=== PATIENT | female | born 1975 | race Caucasian/White ===

== ENCOUNTER 2018-01-17 15:31 | Emergency (ER) | payer OTHER ==
[2018-01-17 15:58] VITALS: BP 105/75; PULSE 81; TEMP 98.4; BMI 20.9
[2018-01-17] MEDS ORDERED: MECLIZINE HCL 25 MG TABLET (FP) PO ONE (15:58)
[2018-01-17] MEDS ORDERED: MECLIZINE HCL 25 MG TABLET (FP) ONE (16:07)
[2018-01-17 16:19] LABS: BASO % 1.1 % (0-2.0); EOS % 1.8 % (0-4.5); HEMATOCRIT 39.6 % (32.4-45.2); HEMOGLOBIN 13.8 GM/dl (10.7-15.3); LYMPH % 35.1 % (8-40); MCH 29.7 pg (25.7-33.7); MCHC 34.9 g/dl (32.0-36.0); MEAN CELL VOLUME 85.2 fl (80-96); MEAN PLT VOLUME 9.5 fl (7.5-11.1); MONO % 7.7 % (3.8-10.2); NEUT % 54.3 % (42.8-82.8); PLATELET COUNT 252 K/MM3 (134-434); RBC 4.65 M/mm3 (3.60-5.2); RDW 11.5 % (11.6-15.6); WHITE BLOOD COUNT 5.7 K/mm3 (4.0-10.8)
--- NOTE | 2018-01-17 16:26 | PDOC ---
History of Present Illness - General Chief Complaint: Lightheaded Stated Complaint: dizzy Time Seen by Provider: 01/17/18 15:35 - History of Present Illness Initial Comments: 01/17/18 16:20 "Patient is a 42 F, with no significant PMHx, who presents today with dizziness. 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 She states that she had just finished her lunch, and while she was seated she felt her head drift to the left side. She states that she felt a floating sensation like her head was in the clouds, and the sensation was worse with movement. Pt states that she sometimes gets lightheaded when her blood pressure is low, but she checked it and it was normal. Pt states that her symptoms have since subsided significantly, although looking to the left sets it off again slightly. Patient states that she has allergies and has had some nasal congestion recently. Denies ear ache, denies F/C. Denies CP/SOB/palpitations. Denies weakness/numbness/tingling in any extremity. Denies slurred speech or facial droop. Past History - Past Medical History Allergies/Adverse Reactions: Allergies Allergy/AdvReac Type Severity Reaction Status Date / Time No Known Allergies Allergy Verified 01/17/18 15:32 Home Medications: Ambulatory Orders Meclizine HCl [Antivert -] 25 mg PO DAILY PRN #7 tablet 01/17/18 COPD: No Other medical history: hypotensive,dizziness - Suicide/Smoking/Psychosocial Hx Smoking History: Never smoked Hx Alcohol Use: No Drug/Substance Use Hx: No Substance Use Type: None Review of Systems - Review of Systems Comments:: 01/17/18 16:23 GENERAL/CONSTITUTIONAL: No fever or chills. No weakness. HEAD, EYES, EARS, NOSE AND THROAT: No change in vision. No ear pain or discharge. +nasal congestion. No sore throat. CARDIOVASCULAR: No chest pain or shortness of breath. RESPIRATORY: No cough, wheezing, or hemoptysis. GASTROINTESTINAL: No nausea, vomiting, diarrhea or constipation. GENITOURINARY: No dysuria, frequency, or change in urination. MUSCULOSKELETAL: No joint or muscle swelling or pain. No neck or back pain. SKIN: No rash NEUROLOGIC: No headache, +vertigo, no loss of consciousness, or change in strength/sensation. ENDOCRINE: No increased thirst. No abnormal weight change. HEMATOLOGIC/LYMPHATIC: No anemia, easy bleeding, or history of blood clots. ALLERGIC/IMMUNOLOGIC: No hives or skin allergy. *Physical Exam - Vital Signs Last Vital Signs Temp Pulse Resp BP Pulse Ox 98.4 F 81 18 105/75 100 01/17/18 15:31 01/17/18 15:41 01/17/18 15:31 01/17/18 15:41 01/17/18 15:31 - Physical Exam Comments: 01/17/18 16:23 """GENERAL: Awake, alert, and fully oriented, in no acute distress. HEAD: No signs of trauma EYES: PERRLA, EOMI, sclera anicteric, conjunctiva clear ENT: Auricles normal inspection, hearing grossly normal, nares patent, oropharynx clear without exudates. Moist mucosa NECK: Nontender, no stepoffs, Normal ROM, supple, no lymphadenopathy, JVD, or masses LUNGS: Breath sounds equal, clear to auscultation bilaterally. No wheezes, and no crackles HEART: Regular rate and rhythm, normal S1 and S2, no murmurs, rubs or gallops ABDOMEN: Soft, nontender, normoactive bowel sounds. No guarding, no rebound. No masses EXTREMITIES: Normal range of motion, no edema. No clubbing or cyanosis. No cords, erythema, or tenderness NEUROLOGICAL: + unidirectional left beating horizontal nystagmus, no rotatory or vertical nystagmus, Cranial nerves II through XII intact. 5/5 strength and sensation in all extremities, Normal speech, normal gait. [id number] normal, tandem gait normal SKIN: Warm, Dry, normal turgor, no rashes or lesions noted. """ ED Treatment Course - LABORATORY CBC & Chemistry Diagram: 01/17/18 16:00 01/17/18 16:00 - Medications Given in the ED: ED Medications Discontinued Medications Generic Name Dose Route Start Last Admin Trade Name Freq PRN Reason Stop Dose Admin Meclizine HCl 25 mg 01/17/18 15:58 01/17/18 16:09 Antivert - PO 01/17/18 15:59 25 mg ONCE ONE Administration Medical Decision Making - Medical Decision Making 01/17/18 16:24 42 F with vertigo. Likely peripheral vertigo, possibly 2/2 viral syndrome or allergic rhinitis. Pt with horizontal left beating nystagmus on exam, with no other focal neuro deficits. Pt is healthy with no risk factors for CVA. - Labs - Meclizine 01/17/18 16:49 Labs wnl Pt reassessed - now feels much better. Ambulatory with steady gait. Repeat exam with no nystagmus. Pt is well appearing, with normal vitals. Clinically stable for DC at this time. I discussed the physical exam findings, ancillary test results and final diagnoses with the patient. I answered all of the patient's questions. The patient was satisfied with the care received and felt comfortable with the discharge plan and treatment plan. The patient agrees to follow up with the primary care physician within 24-72 hours. *DC/Admit/Observation/Transfer Diagnosis at time of Disposition: Vertigo - Discharge Dispostion Condition at time of disposition: Stable - Prescriptions Prescriptions: Meclizine HCl [Antivert -] 25 mg PO DAILY PRN #7 tablet PRN Reason: Vertigo - Referrals Referrals: Alexx Subramanian MD [Staff Physician] - - Patient Instructions Printed Discharge Instructions: Benign Paroxysmal Positional Vertigo Additional Instructions: You likely have vertigo. Take the meclizine as needed when you have episodes of dizziness. Call the number provided to make an appointment with an ENT specialist for further evaluation of your vertigo. If you experience severe or persistent dizziness, headache, vomiting, or any other concerning symptoms, return to the ER immediately. - Post Discharge Activity - Attestations Physician Attestion: 01/17/18 16:44 I, Dr. Dejon Jang MD, attest that this document has been prepared under my direction and personally reviewed by me in its entirety. I further attest, that it accurately reflects all work, treatment, procedures and medical decision -making performed by me.
[2018-01-17 16:32] LABS: ALBUMIN 3.9 g/dl (3.5-5.0); ALK PHOS 40 U/L (32-92); ANION GAP 6 (8-16); BILIRUBIN,TOTAL 0.6 mg/dl (0.2-1.0); BLOOD UREA NITROGEN 13 mg/dl (7-18); CALCIUM 8.8 mg/dl (8.4-10.2); CHLORIDE 99 mmol/L (98-107); CO2 29 mmol/L (22-28); GLUCOSE,RANDOM 92 mg/dl (74-106); SGOT/AST 17 U/L (10-42); SGPT/ALT 13 U/L (10-40); SODIUM 134 mmol/L (136-145); TOT PROT 7.3 g/dl (6.4-8.3)
[2018-01-17 16:52] LABS: CREATININE < 0.8 mg/dl (0.6-1.3)
== END 2018-01-17 16:55 | disposition home or self-care (01) ==
LOC: FER 15:31
DX: R42 Dizziness and giddiness (principal)
CPT/HCPCS: 36415; 80053; 85025; 99282-25

== ENCOUNTER 2021-08-02 08:48 | Emergency (ER) | payer OTHER ==
[2021-08-02 08:58] VITALS: BP 108/75; PULSE 89; TEMP 98.4; BMI 20.5
[2021-08-02] MEDS ORDERED: ONDANSETRON *ODT* 4 MG TABLET SL ONE (09:11)
[2021-08-02] MEDS ORDERED: IBUPROFEN 600 MG TABLET (FP) PO ONE ×2 (09:11→09:12)
[2021-08-02] MEDS ORDERED: ONDANSETRON *ODT* 4 MG TABLET ONE (09:12)
== END 2021-08-02 09:40 | disposition home or self-care (01) ==
LOC: FER 08:48
DX: S09.90XA Unspecified injury of head, initial encounter (principal); W22.8XXA Striking against or struck by other objects, initial encounter
CPT/HCPCS: 99283-25; Q0162

== ENCOUNTER 2023-12-02 13:17 | Emergency (ER) | payer OTHER ==
[2023-12-02 14:15] VITALS: BP 105/69; PULSE 74; RESP 20; TEMP 98.1; BMI 22.1
== END 2023-12-02 15:18 | disposition home or self-care (01) ==
LOC: FER 13:17
PROC: 2W3RX1Z Immobilization of Left Lower Leg using Splint (ICD-10-PCS; principal; 2023-12-02)
DX: S92.352A Displaced fracture of fifth metatarsal bone, left foot, initial encounter for closed fracture (principal); X50.1XXA Overexertion from prolonged static or awkward postures, initial encounter
CPT/HCPCS: 73630-TC-LT; 99283-25